=== PATIENT | female | born 1955 | race Two or more races ===

== ENCOUNTER 2018-12-13 08:40 | Outpatient (CLI) | payer OTHER | END 2018-12-13 09:00 | disposition home or self-care (01) | LOC: OFIC 805 08:40 | DX: H69.82 Other specified disorders of Eustachian tube, left ear (principal); J31.0 Chronic rhinitis; J32.8 Other chronic sinusitis; J34.2 Deviated nasal septum; H90.12 Conductive hearing loss, unilateral, left ear, with unrestricted hearing on the contralateral side ==

== ENCOUNTER → 2023-07-24 | Emergency (ER) | payer OTHER ==
[~2023-07-24] VITALS: Ht 154.9 cm; Wt 55.3 kg
[~2023-07-24] MED LIST: ATIVAN1 M1 PO; VENLAFAXINE HCL75 M2 PO
== END | disposition left against medical advice (07) ==
LOC: ER 11:01
DX: Z53.21 Procedure and treatment not carried out due to patient leaving prior to being seen by health care provider (principal)